=== PATIENT | female | born 1955 | race Caucasian/White ===

== ENCOUNTER → 2017-07-15 | Day surgery (SDC) | payer OTHER ==
[~2017-07-15] VITALS: Ht 157.5 cm; Wt 52.2 kg
[~2017-07-15] MED LIST: ALLEGRA ALLERG180 M1 PO; ALMOTRIPTAN M12.5 MG PO; CITRACAL + D M1 EACH PO; CITRUCEL500 M1 PO; DICLOFENAC SODI50 M3 PO; ESTRACE42.5 GM VG; FISH OIL OMEGA1 EAC2 PO; GLUCOSAMINE1000 MG PO; HEARTBURN RELI150 MG PO; LIPO-FLAVONOID1 EACH PO; MAGNESIUM CITR125 MG PO; MSM1000 M1 PO; NATURAL LUTEIN20 MG PO; PROBIOTIC1 EAC4 PO; SLOW FE142 MG PO; TURMERIC500 M2 PO; VITAMIN B COMP1 EACH PO; VITAMIN C500 M6 PO; ZINC50 M4 PO; [UNRECOGNIZED DRUG - OTHER] PO
--- NOTE | 2017-07-15 09:19 | Operative Report ---
Operative/Inv Procedure Report Surgery Date: 07/15/17 Name of Procedure: 1. Inferior turbinate submucous resection, bilateral 2. Middle turbinate excision of paradoxical curve, bilateral Pre-Operative Diagnosis: 1. Inferior turbinate hypertrophy 2. Middle turbinate paradoxical cord Post-Operative Diagnosis: Same Estimated Blood Loss: scant Surgeon/Electric Drill Operator: Susan Blum MD Anesthesia: general endotracheal tube Specimens: 1. Inferior and middle turbinate, left 2. Inferior and middle turbinates, right Complications: Non- Condition: Stable on leaving the OR Operative Indication: Nasal airway obstruction Difficulty breathing through her nose Sleep apnea Operative/Procedure Note Note: The patient was brought to the operating room. Placed on the operating room table in supine position. At first timeout was performed identifying the patient, ID numbers and procedure to be performed. Next general oral endotracheal anesthesia was induced. Endotracheal tube was secured with tape over the last corner of the lip. Operating room table was rotated 90 to the left and patient was positioned for septal surgery with head slightly hyperextended and rotated to the right. At first vasoconstriction was carried by application of Afrin spray on cottonoid pledgets. Next nasal septum was injected with 1% lidocaine with 1: 100,000 epinephrine approximately 3 mL was injected into the left middle turbinate followed 3 mL injection of the right turbinate. This followed by placement of cottonoid pledgets saturated with cocaine solution. Face was then prepped and draped in routine manner and surgery was performed. Nasal septum was examined and there was mild septal bowing superior to the right. Both inferior turbinates were quite hypertrophied and obstructing the inferior meatus. Examination of middle turbinates revealed marked protrusion and bilateral ostiomeatal complex on both sides consistent with paradoxical curve of the middle turbinates. At first a Kiss sponge was placed through the right nostril posteriorly into the nasopharynx to catch bloody drainage from septoplasty surgery. Inferior turbinates were then in and out fractured and excised in submucous manner. This procedure was at first done on the left followed by the right. This was done with direct visualization with the 0 scope. Examination of the middle turbinates revealed hypertrophy and obstruction of the middle meatus. The most inferior aspect of the middle turbinates was removed. Specifically paradoxical curve was excised on both sides. This done and a piecemeal manner with the Sjwald forceps. Surgery was completed. Nasal packing was applied next. Nasal fossa was packed with Telfa saturated with Bactroban ointment. Telfa was stitched anteriorly with 2-0 silk to prevent posterior displacement. Helotene slurry was injected on both sides for additional coagulation. Surgery was completed. The patient was reawakened, extubated and taken to the recovery room in good condition. There were no complications. Estimated blood was scant. 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
== END ==
LOC: STS 03:27
DX: J34.3 Hypertrophy of nasal turbinates (principal); J34.89 Other specified disorders of nose and nasal sinuses; G47.30 Sleep apnea, unspecified; K21.9 Gastro-esophageal reflux disease without esophagitis
CPT/HCPCS: J0690; J1100; J2250; J2405